=== PATIENT | female | born 1990 | race African-American/Black ===

== ENCOUNTER 2017-03-29 13:11 | Emergency (ER) | payer OTHER ==
[~2017-03-29] VITALS: Ht 154.9 cm; Wt 52.2 kg
[2017-03-29 13:12] VITALS: BP 135/58
[2017-03-29 13:59] LABS: BASO % 0.4 % (0.0-1.0); EOS # 0.6 K/mm3 (0.0-0.50); EOS % 9.7 % (0.0-3.0); LARGE UNSTAINED CELL # 0.2 K/mm3 (0.0-0.4); LARGE UNSTAINED CELL % 3.3 % (0.0-4.0); LYMPH # 1.5 K/mm3 (1.5-6.5); LYMPH % 24.5 % (24.0-44.0); MEAN CORPUSCULAR HEMOGLOBIN 30.1 pg (27.0-33.0); MEAN CORPUSCULAR VOLUME 94.2 fl (80.0-96.0); MONO # 0.5 K/mm3 (0.0-0.8); MONO % 7.6 % (0.0-5.0); NEUTROPHILS # 3.4 K/mm3 (1.8-7.7); NEUTROPHILS % 54.5 % (36.0-66.0); PLATELET COUNT, AUTOMATED 336 k/mm3 (150-450); RED CELL DISTRIBUTION WIDTH 12.7 % (11.5-14.5); WHITE BLOOD COUNT 6.2 K/mm3 (4.0-10.0)
[2017-03-29 14:13] LABS: CONTROL LINE HCG INT CTR LINE PRESENT
--- NOTE | 2017-03-29 14:59 | REP ---
PELVIC ULTRASOUND: Real-time sonographic evaluation of the pelvis is performed utilizing transabdominal and endovaginal technique. The bladder is empty. The uterus measures 8.0 x 3.7 x 5.3 cm. Endometrial thickness 3 mm with no endometrial fluid collection. Ovaries are normal in size and echotexture, the right ovary measures 2.6 x 1.3 x 2.1 cm and left ovary 2.9 x 1.4 x 1.8 cm. There is no adnexal mass or free fluid. There is no evidence of ovarian torsion, with blood flow seen in each ovary with duplex Doppler evaluation, RI right ovary 0.43 and left ovary 0.64. IMPRESSION: Negative pelvic ultrasound. Signed by Giuseppe Briceño MD 03/29/2017 07:51 P
== END 2017-03-29 14:49 | disposition home or self-care (01) ==
LOC: M ED 13:52
DX: N92.1 Excessive and frequent menstruation with irregular cycle (principal)

== ENCOUNTER 2018-06-30 09:36 | Emergency (ER) | payer OTHER ==
[2018-06-30 10:25] LABS: KETONE, URINE AUTO RFX NEGATIVE (NEGATIVE); LEUKOCYTE ESTERASE UR AUTO RFX NEGATIVE (NEGATIVE); MUCUS, URINE RFX SMALL (NEGATIVE); NITRITE, URINE AUTO RFX NEGATIVE (NEGATIVE); RBC, URINE AUTO RFX 0 /HPF (0-3); SPECIFIC GRAVITY UR AUTO RFX 1.019 (1.002-1.035); SQUAM EPITHELIAL CELL UR AURFX 4 /HPF (0-6); WBC, URINE AUTO RFX 1 /HPF (0-3)
[2018-06-30 10:30] LABS: BASO % 0.2 % (0.0-1.0); EOS # 0.1 10^3/uL (0.0-0.50); EOS % 1.6 % (0.0-3.0); HEMATOCRIT 40.9 % (36.0-47.0); HEMOGLOBIN 13.5 g/dl (12.0-15.5); IMMATURE GRANULOCYTE % 0.5 % (0-3.0); LYMPH # 1.6 10^3/uL (1.5-6.5); LYMPH % 19.3 % (24.0-44.0); MEAN CORPUSCULAR HEMOGLOBIN 28.5 pg (27.0-33.0); MEAN CORPUSCULAR VOLUME 86.5 fl (80.0-96.0); MONO # 0.9 10^3/uL (0.0-0.8); MONO % 11.5 % (0.0-5.0); NEUTROPHILS # 5.5 10^3/uL (1.8-7.7); NEUTROPHILS % 66.9 % (36.0-66.0); PLATELET COUNT, AUTOMATED 284 10^3/uL (150-450); RED BLOOD COUNT 4.73 10^6/uL (4.00-5.40); WHITE BLOOD COUNT 8.2 10^3/uL (4.0-10.0)
[2018-06-30 10:59] LABS: ANION GAP 8 MEQ/L (8-16); BLOOD UREA NITROGEN 11 MG/DL (7-18); CALCIUM LEVEL 9.1 MG/DL (8.5-10.1); CARBON DIOXIDE LEVEL 27 MEQ/L (21-32); CHLORIDE LEVEL 103 MEQ/L (98-107); CREATININE FOR GFR 0.82 MG/DL (0.55-1.30); GLOMERULAR FILTRATION RATE > 60.0 (>60); GLUCOSE, FASTING 82 MG/DL (70-100); HCG, SERUM QUANTITATIVE 14799 MIU/ML; POTASSIUM SERUM 4.1 MEQ/L (3.5-5.1); SODIUM LEVEL 138 MEQ/L (136-145)
== END 2018-06-30 11:47 | disposition home or self-care (01) ==
LOC: M ED 09:36
DX: O26.891 Other specified pregnancy related conditions, first trimester (principal); R10.32 Left lower quadrant pain; Z3A.01 Less than 8 weeks gestation of pregnancy; O99.341 Other mental disorders complicating pregnancy, first trimester; F41.9 Anxiety disorder, unspecified; F33.9 Major depressive disorder, recurrent, unspecified
CPT/HCPCS: 76801

== ENCOUNTER 2018-08-18 03:33 | Emergency (ER) | payer OTHER ==
[2018-08-18 04:27] LABS: HEMATOCRIT 35.3 % (36.0-47.0); HEMOGLOBIN 11.6 g/dl (12.0-15.5); MEAN CORPUSCULAR HGB CONC 32.9 g/dl (32.0-36.5); MEAN CORPUSCULAR VOLUME 88.3 fl (80.0-96.0); PLATELET COUNT, AUTOMATED 253 10^3/uL (150-450); RED CELL DISTRIBUTION WIDTH 12.5 % (11.5-14.5); WHITE BLOOD COUNT 9.2 10^3/uL (4.0-10.0)
== END 2018-08-18 05:31 | disposition home or self-care (01) ==
LOC: M ED 03:33
DX: O20.0 Threatened abortion (principal); Z67.90 Unspecified blood type, Rh positive; O44.51 Low lying placenta with hemorrhage, first trimester; Z3A.13 13 weeks gestation of pregnancy; Z79.899 Other long term (current) drug therapy
CPT/HCPCS: 76801

== ENCOUNTER → 2018-10-12 | Outpatient (REF) | payer OTHER ==
[2018-10-12 15:23] LABS: BASO % 0.2 % (0.0-1.0); EOS # 0.1 10^3/uL (0.0-0.50); EOS % 1.3 % (0.0-3.0); HEMATOCRIT 35.7 % (36.0-47.0); HEMOGLOBIN 11.7 g/dl (12.0-15.5); IMMATURE GRANULOCYTE % 1.1 % (0-3.0); LYMPH # 1.2 10^3/uL (1.5-6.5); LYMPH % 14.3 % (24.0-44.0); MEAN CORPUSCULAR HEMOGLOBIN 29.9 pg (27.0-33.0); MEAN CORPUSCULAR HGB CONC 32.8 g/dl (32.0-36.5); MEAN CORPUSCULAR VOLUME 91.3 fl (80.0-96.0); MONO # 0.8 10^3/uL (0.0-0.8); MONO % 9.4 % (0.0-5.0); NEUTROPHILS % 73.7 % (36.0-66.0); PLATELET COUNT, AUTOMATED 234 10^3/uL (150-450); RED BLOOD COUNT 3.91 10^6/uL (4.00-5.40); RED CELL DISTRIBUTION WIDTH 13.2 % (11.5-14.5); WHITE BLOOD COUNT 8.2 10^3/uL (4.0-10.0)
[2018-10-12 15:38] LABS: ALBUMIN 3.2 GM/DL (3.2-5.2); ALBUMIN/GLOBULIN RATIO 0.86 (1.00-1.93); ALKALINE PHOSPHATASE 52 U/L (45-117); ALT/SGPT 16 U/L (12-78); ANION GAP 8 MEQ/L (8-16); AST/SGOT 6 U/L (7-37); BILIRUBIN,TOTAL 0.5 MG/DL (0.2-1.0); BLOOD UREA NITROGEN 7 MG/DL (7-18); CALCIUM LEVEL 8.5 MG/DL (8.5-10.1); CARBON DIOXIDE LEVEL 27 MEQ/L (21-32); CHLORIDE LEVEL 103 MEQ/L (98-107); CREATININE FOR GFR 0.58 MG/DL (0.55-1.30); GLOMERULAR FILTRATION RATE > 60.0 (>60); GLUCOSE, FASTING 57 MG/DL (70-100); POTASSIUM SERUM 3.7 MEQ/L (3.5-5.1); SODIUM LEVEL 138 MEQ/L (136-145); TOTAL PROTEIN 6.9 GM/DL (6.4-8.2)
[2018-10-12 17:41] LABS: CHLAMYDIA DNA AMPLIFICATION NEGATIVE (NEGATIVE); GC DNA AMPLIFICATION NEGATIVE (NEGATIVE)
[2018-10-13 10:48] LABS: HIV 1&2 SCREEN CENTAUR NEGATIVE (NEGATIVE)
[2018-10-17 13:54] LABS: HIV-1 RNAby PCR <20 copies/mL
== END ==
LOC: M SFHCPLAZ 10:15
DX: Z20.6 Contact with and (suspected) exposure to human immunodeficiency virus [HIV] (principal)

== ENCOUNTER → 2018-11-08 | Outpatient (REF) | payer OTHER ==
[2018-11-08 13:09] LABS: HIV 1&2 SCREEN CENTAUR NEGATIVE (NEGATIVE)
== END ==
LOC: M SFHCPLAZ 10:41
DX: Z20.6 Contact with and (suspected) exposure to human immunodeficiency virus [HIV] (principal)
CPT/HCPCS: 36415

== ENCOUNTER → 2019-02-05 | Outpatient (REF) | payer OTHER ==
[~2019-02-05] MED LIST: PRENCHW PO; VITA500046 PO
== END ==
LOC: M SFHCPLAZ 11:38
PROVIDERS: ATTEND Internal Medicine Infectious Disease
DX: Z20.6 Contact with and (suspected) exposure to human immunodeficiency virus [HIV] (principal)

== ENCOUNTER 2019-02-25 04:21 | Inpatient (IN) | payer OTHER ==
[~2019-02-25] VITALS: Ht 154.9 cm; Wt 71.2 kg
[2019-02-25] VITALS (65 sets, daily range): BP systolic 84–177; BP diastolic 50–104
[2019-02-25] MEDS ORDERED: PENICILLIN G POTASSIUM IV 5 MU in D5W MINI-BAG PLUS 100 ML IV STA (04:52)
[2019-02-25] MEDS ORDERED: LACTATED RINGER'S 1000 ML IV STA (04:52)
--- NOTE | 2019-02-25 05:16 | HPEPDOC ---
Obstetrical History & Physical General Date of Admission Feb 25, 2019 at 04:52 History of Present Illness Julia is a 28yo with SIUP at 40w1d by early u/s who presents tonight fo r complaint of regular, painful ctx that are increasing in intensity. No LOF, no vaginal bleeding, feels good movement. No f/c/n/v/CP/SOB. Chief Complaint: Contractions, term Information Provided By: Patient Care Care: Good Care Dating Final EDC: Feb 24, 2019 Final EDC by: 1st trimester (US) Antepartum Course Diagnos(e)s placenta previa with resolution on subsequent ultrasound, FOB has HIV (no intercourse since 's diagnosis, followed by Dr. Bang with negative HIV testing throughout , patient declined Truvada), incidental cervical shortening in second trimester- patient received vaginal progesterone through and received a course of steroids at 24 weeks, overweight with starting BMI 26.7 Height (inches): 61 Pre- weight (lbs.): 141 Admission Weight (lbs.): 159 Change in Weight (lbs.): 18 Past Medical History Past Obstetrical History : Past Obstetrical History: Primgravida (ETOP 07/2015) CERTIFIED PESTICIDE APPLICATOR History: Theraputic , Abnormal Pap (2013) Past Medical History Medical History overweight, history of depression/anxiety treated with medications [id number] but stable on no medications since Surgical History: Dilatation and Curettage, [place] teeth, Other (excision of ganglion cyst, dental implants) Family History Significant Family History: No pertinent family hx Social History Marital Status: Family situation: Spouse/partner home Psychosocial History: Anxiety, Depression * Smoker: non-smoker Alcohol: Denies Drugs: denies Imunizations Tdap status: current Influenza Status: current Allergies Coded Allergies: No Known Allergies (Unverified , 03/29/17) Medications Scheduled Multivitamins/ ( 19) 1 Chw Chw, 1 TAB PO DAILY Miscellaneous Medications Cholecalciferol (Vitamin D) 5,000 Unit Tab, 5,000 UNIT PO Physical Examination Physical Examination GENERAL: Alert and oriented times three. ABDOMEN: Gravid and non-tender to touch. FETUS: Is vertex (VTX) by sterile vaginal examination (SVE) EXTREMITIES: No edema Pertinent Laboratoy Data Blood Type: O+ RBC Antibody Screen: Negative HIV: Negative Hepatitis B: Negative Hepatitis C: Unknown Rapid Plasma Reagin: Nonreactive Rubella: Immune Varicella: Immune Chlamydia/Gonorrhea: Negative Group B Streptococcus: Positive Glucose Tolerance Test: 119 Anatomy Ultrasound Ultrasound Date: Oct 06, 2018 Placenta Location: Posterior Normal Anatomy: Yes Placenta Previa: No Other Ultrasounds 18 Dec at 25wk, cervical length 1.44cm Steroid Therapy Steroid Therapy: Yes Vaginal Examination Dilation: 4 cm Effacement: 90% Station: -2 Cervical Consistency: Soft Cervical Position: Anterior Presentation: Cephalic presentation Assessment Heart Rate (FHR): 130 Variability: Moderate Accelerations: Positive Decelerations: None Tocometer Contractions: Yes Frequency: regular, every 2-5 min. Duration: greater than 60 seconds Strength: palpated as moderate Assessment/Plan Assessment Julia is a 28yo with SIUP at 40w1d in active labor with SCE 4/90/-2 and ctx q3-5min. Cat I FHRT. Vitals wnl, benign exam. GBS positive. Cephalic by SCE. PNC significant for: placenta previa with resolution on subsequent ultrasound, FOB has HIV (no intercourse since 's diagnosis, followed by Dr. Bang with negative HIV testing throughout , patient declined Truvada), incidental cervical shortening in second trimester- patient received vaginal progesterone through and received a course of steroids at 24 weeks, overweight with starting BMI 26.7 Plan Admit and orient. Biomed Tech and consent. Diet: clear liquids Group B Streptococcus (GBS) positive, no allergies: PCN per protocol Labs and intravenous (IV) per unit protocol. Will also draw HIV. Lactated Ringers (LR): Bolus 1000 mL, then at 125 mL/hr. Anticipate normal spontaneous delivery () Candidate for epidural if desired MD Reagan Torres Katrina D MD Feb 25, 2019 05:16
[2019-02-25] MEDS: LR 1,000 ML IV SCH ×3 (05:23→18:26)
[2019-02-25] MEDS ORDERED: PROMETHAZINE INJ 25 MG/ML VIAL (J2550) IV ONE (05:30)
[2019-02-25] MEDS ORDERED: BUTORPHANOL 2 MG/ML INJ (J0595) IV PRN (05:30)
[2019-02-25 05:36] LABS: HEMATOCRIT 41.8 % (36.0-47.0); HEMOGLOBIN 13.8 g/dl (12.0-15.5); MEAN CORPUSCULAR HEMOGLOBIN 29.4 pg (27.0-33.0); MEAN CORPUSCULAR VOLUME 88.9 fl (80.0-96.0); PLATELET COUNT, AUTOMATED 191 10^3/uL (150-450); WHITE BLOOD COUNT 10.6 10^3/uL (4.0-10.0)
[2019-02-25] MEDS ORDERED: FENTANYL 2MCG/ML ROPIVACAINE 0.2% IN 0.9% NACL 100ML IVBAG As Ordered ONE (06:04)
[2019-02-25] MEDS ORDERED: ePHEDrine SULFATE 25 MG/5 ML(5MG/ML) SYRINGE IV PRN (06:54)
[2019-02-25] MEDS ORDERED: EPIDURAL COMMENT XX SCH (06:54)
[2019-02-25] MEDS ORDERED: diphenhydrAMINE INJ 50MG/ML VIAL (J1200) IV PRN (06:54)
[2019-02-25] MEDS ORDERED: EPIDURAL/PCA KEYS XX PRN (06:54)
[2019-02-25] MEDS ORDERED: ONDANSETRON 4MG/2ML VIAL (J2405) IV PRN (06:54)
[2019-02-25] MEDS: FENTANYL/ROPIVACAINE/NACL BAG 100 ML EPIDURAL SCH ×2 (06:54→14:13)
[2019-02-25] MEDS ORDERED: NALOXONE INJ 0.4 MG/1 ML VIAL (J2310) IV PRN (06:54)
[2019-02-25] MEDS ORDERED: REFRIGERATOR IV KEYS XX PRN (06:54)
[2019-02-25] MEDS ORDERED: LACTATED RINGER'S 1000 ML IV PRN (06:54)
[2019-02-25] MEDS: PENICILLIN G POTASSIUM IV 2.5 MU in APPROPRIATE DILUENT 1 EA IV SCH ×3 (09:25→17:58)
[2019-02-25] MEDS ORDERED: OXYTOCIN 30 UNITS IN 0.9% NaCl 500ML IV BAG (J2590) As Ordered ONE (09:30)
--- NOTE | 2019-02-25 10:13 | IPNPDOC ---
Text Note Date of Service The patient was seen on 02/25/19. NOTE Intrapartum Note Pt doing well, comfortable with epidural now. Has received 2 doses of PCN. Vitals wnl, afebrile SCE /-2, AROM performed with scant bloody fluid noted Cat I FHRT w/+accels, -decels, mod calderon [place]: irreg ctx HIV test on admission negative Will begin pitocin and titrate per protocol Continue to closely monitor Safe to proceed Dr. Ana Kirk MD VS,Yesenia, I+O VS, Yesenia, I+O Laboratory Tests 02/25/19 05:14 Red Blood Count 4.70, Mean Corpuscular Volume 88.9, Mean Corpuscular Hemoglobin 29.4, Mean Corpuscular Hemoglobin Concent 33.0, Red Cell Distribution Width 13.2 Vital Signs Date Time Temp Pulse Resp B/P (MAP) Pulse Ox O2 Delivery O2 Flow Rate FiO2 02/25/19 08:52 83 102/59 (73) 02/25/19 07:07 18 02/25/19 06:37 99.0 Ana Kirk MD Feb 25, 2019 10:13
[2019-02-25] MEDS ORDERED: OXYTOCIN DRIP 30 UNITS in APPROPRIATE DILUENT 1 EA IV SCH ×2 (11:30→21:36)
--- NOTE | 2019-02-25 14:54 | IPNPDOC ---
Text Note Date of Service The patient was seen on 02/25/19. NOTE Intrapartum Note Patient comfortable, sleeping off and on. Pitocin at 2mu. Vitals wnl, afebrile SCE 7/80/-1 Cat 2 FHRT w/+accels, small occasional variable decels, mod calderon [place]: ctx q2-4min Will use peanut ball for positioning Will continue pitocin per protocol Plan to re-check in 2hr or earlier as indicated Safe to proceed Dr. Ana Kirk MD VS,Yesenia, I+O VS, Yesenia I+O Laboratory Tests 02/25/19 05:14 Red Blood Count 4.70, Mean Corpuscular Volume 88.9, Mean Corpuscular Hemoglobin 29.4, Mean Corpuscular Hemoglobin Concent 33.0, Red Cell Distribution Width 13.2 Vital Signs Date Time Temp Pulse Resp B/P (MAP) Pulse Ox O2 Delivery O2 Flow Rate FiO2 02/25/19 08:52 83 102/59 (73) 02/25/19 07:07 18 02/25/19 06:37 99.0 Ana Kirk MD Feb 25, 2019 14:54
[2019-02-25] MEDS ORDERED: ACETAMINOPHEN 500 MG TAB As Ordered ONE (18:07)
[2019-02-25] MEDS ORDERED: ACETAMINOPHEN 500 MG TAB PO ONE (18:15)
--- NOTE | 2019-02-25 21:42 | DNPDOC ---
[facility] Delivery Note Delivery Note DATE OF DELIVERY: 02/25/2019 PREDELIVERY DIAGNOSIS: 40w1d gestation and labor. POST DELIVERY DIAGNOSIS: Delivered. PROCEDURE: Spontaneous vaginal delivery FATBACK TRIMMER: Dr. Ana Kirk MD ANESTHESIA: epidural ESTIMATED BLOOD LOSS: 250 mL. FINDINGS: 6 pound 15 ounce (3150g) male , Score 8/9, nuchal cord times 1 DELIVERY SUMMARY: uJlia is a 28yo [id number] s/p uncomplicated at 40w1d after presenting in active labor, delivering at 2103 on 02/25/19. She presented at 4cm and with pitocin augmentation she progressed to C/C/0 at which point she began pushing. Great maternal effort, head delivered OA, restituted REYNALDO, one tight nuchal cord delivered through and left compound hand noted. Right anterior shoulder delivered easily followed by posterior shoulder and corpus, nuchal cord reduced. Infant vigorous with spontaneous cry, placed on maternal abdomen, nose and mouth suctioned with bulb suction, apgars 8/9. Cord clamped x2 and cut by FOB, then taken to the warmer. Uterine massage performed, traction on the umbilical cord, placenta delivered spontaneously and intact with 3 vessel centrally inserted cord. IV pitocin was given per protocol, bimanual massage performed and uterus then firm at u-2cm. Inspection of perineum and vagina revealed a very small hymenal miladys repaired with 3-0 vicryl with a figure of 8 after anesthetizing with hemostasis noted. Mom and infant were doing well when I left the room. MD Reagan Torres Katrina D MD Feb 25, 2019 21:42
[2019-02-25] MEDS ORDERED: RHOGAM 300 MCG (1500 IU) INJ (J2790) IM SCH (21:45)
[2019-02-25] MEDS ORDERED: ACETAMINOPHEN 500 MG TAB PO PRN (21:45)
[2019-02-25] MEDS ORDERED: DIBUCAINE 1% OINTMENT 30GM TOP PRN (21:45)
[2019-02-25] MEDS ORDERED: MEASLES,MUMPS,RUBELLA VACCINE INJ (MMR-II) (90707) SC SCH (21:45)
[2019-02-25] MEDS ORDERED: DOCUSATE SODIUM 100 MG CAP PO PRN (21:45)
[2019-02-26] MEDS: FENTANYL/ROPIVACAINE/NACL BAG 100 ML EPIDURAL SCH ×3 (02:54→22:54)
[2019-02-26] MEDS: IBUPROFEN 800 MG TAB PO PRN ×2 (05:56→17:29)
[2019-02-26 06:10] VITALS: BP 113/58
--- NOTE | 2019-02-26 07:36 | IPNPDOC ---
Progress Note Date of Service: Feb 26, 2019 Day#: 1 Progress Note PPD 1 SUBJECT: Julia is a 28yo [id number] s/p at 40w1d after presenting in active labor, delivering at 2102 on 02/25/19, doing well day # 1. She has been ambulating, voiding spontaneously without issue and tolerating regular diet. Breast feeding without issue. Reports lochia is like a heavy period. No f/c/n/v/CP/SOB. OBJECTIVE: VITAL SIGNS: Within normal limits, afebrile. Alert and oriented times three. Abdomen: Fundus firm at U-2. Soft, NTTP. Extremities: no pain with palpation of calves ASSESSMENT: Julia is a 28yo [id number] s/p at 40w1d after presenting in active labor, delivering at 210 on 02/25/19, doing well day # 1. Vitals within normal limits, afebrile, hemodynamically stable with no evidence of infection. PLAN: 1. Routine care 2. Tylenol and Motrin for pain. 3. Encourage breast feeding and ambulation. 4. undecided on contraception 5. instructional systems design consultant to assist today 6. possible discharge home tomorrow if meeting all milestones Dr. Ana Kirk MD VS, I&O, 24H, Fishbone Vital Signs/I&O Vital Signs Date Time Temp Pulse Resp B/P (MAP) Pulse Ox O2 Delivery O2 Flow Rate FiO2 02/26/19 06:10 99.6 83 16 113/58 (76) I&O- Last 24 Hours up to 6 AM 02/26/19 06:00 Intake Total 3910 ml Output Total 2350 ml Balance 1560 ml Ana Kirk MD Feb 26, 2019 07:36
[2019-02-26] MEDS: PRENATAL VITAMINS CHEWABLE TABLET PO SCH (09:24)
[2019-02-26 18:00] VITALS: BP 119/61
[2019-02-27 06:00] VITALS: BP 130/70
[2019-02-27] MEDS: IBUPROFEN 800 MG TAB PO PRN (06:17)
--- NOTE | 2019-02-27 07:05 | IPNPDOC ---
Text Note Date of Service The patient was seen on 02/27/19. NOTE PPD2 States feeling well, pain controlled with prescribed meds. Baby bonding and feeding well. No heavy VB. Lochia slowing. Ambulatory. Tolerating PO without issues. Voiding spont. No CP/LP/SOB. VSSAF NAD A&O LE no C/C/E Ut at U-2, firm a/p: Doing well. Cont routine care. D/C likely tomorrow AM (48 hrs tonight at 2100, ifi baby is discharged this afternoon, will arrange d/c as well). Sessions MD COOPER,Yesenia, I+O VSYesenia, I+O Vital Signs Date Time Temp Pulse Resp B/P (MAP) Pulse Ox O2 Delivery O2 Flow Rate FiO2 02/27/19 06:00 97.5 56 16 130/70 (90) SESSIONS,ERIKA Zavala MD Feb 27, 2019 07:05
[2019-02-27] MEDS: PRENATAL VITAMINS CHEWABLE TABLET PO SCH (09:00)
[2019-02-27] MEDS ORDERED: NUPE1OIN2 TOP (14:05)
[2019-02-27] MEDS ORDERED: IBUP-1114 PO (14:05)
[2019-02-27] MEDS ORDERED: COLA100C5 PO (14:05)
[2019-02-27] MEDS ORDERED: MAPA500T2 PO (14:05)
== END 2019-02-27 14:36 | disposition home or self-care (01) | DRG 807 ==
LOC: M LDO 04:21 → M LDI 04:52 → M OBS 23:12
PROVIDERS: ADMIT Obstetrics & Gynecology; ATTEND Obstetrics & Gynecology
PROC: 10E0XZZ Delivery of Products of Conception, External Approach (ICD-10-PCS; principal; 2019-02-25)
PROC: 10907ZC Drainage of Amniotic Fluid, Therapeutic from Products of Conception, Via Natural or Artificial Opening (ICD-10-PCS; 2019-02-25)
DX: O99.824 Streptococcus B carrier state complicating childbirth (principal); Z37.0 Single live birth; Z3A.40 40 weeks gestation of pregnancy; O69.1XX0 Labor and delivery complicated by cord around neck, with compression, not applicable or unspecified; O32.6XX0 Maternal care for compound presentation, not applicable or unspecified